=== PATIENT | male | born 1960 | race Caucasian/White ===

== ENCOUNTER → 2017-11-07 | Outpatient (CLI) | payer OTHER ==
--- NOTE | 2017-11-07 16:21 | KCIC ---
EXAM: Lumbar spine MRI without contrast. HISTORY: Radiculopathy. TECHNIQUE: Multiplanar, multisequence magnetic resonance imaging of the lumbar spine was performed without contrast. COMPARISON: None. FINDINGS: There is minimal lumbar levoscoliosis. There is no significant listhesis. The vertebral bodies are normal in height. There is degenerative endplate remodeling with anterior predominant osteophytosis throughout the lumbar spine. There is slight disc desiccation predominantly at L2-L3 and L3-L4. There are multiple endplate Schmorl's nodes. There is no suspicious osseous lesion. There is a large incidental osseous hemangioma or atypical hemangioma which demonstrates increased signal on inversion recovery images within the right posterior aspect of T12. No suspicious osseous lesion is seen. There is slight dorsal epidural lipomatosis at L4-L5. The conus terminates at T12-L1. At L1-L2, there is a minimal disc bulge and anterior predominant endplate remodeling. There is mild facet arthropathy. There is mild bilateral foraminal stenosis. At L2-L3, there is a mild disc bulge and anterior predominant endplate remodeling. There is mild bilateral facet arthropathy. There is mild central canal stenosis. At L3-L4, there is a right paracentral to extraforaminal disc protrusion and osteophyte complex and suspected tiny left foraminal disc protrusion. These are superimposed on a disc bulge and endplate remodeling. There is mild bilateral facet arthropathy. There is mild to moderate right and mild left foraminal stenosis with abutment of the exiting right vertebral left L3 nerve roots. There is mild central canal stenosis. At L4-L5, there is a left foraminal to extra foraminal disc protrusion superimposed on a disc bulge and endplate remodeling. There is moderate bilateral facet arthropathy. There is mild bilateral foraminal stenosis with abutment of the exiting left L4 nerve root. There is mild central canal stenosis. At L5-S1, there is mild bilateral facet arthropathy. There is no stenosis. IMPRESSION: Multilevel degenerative change throughout the lumbar spine, described above. This results in mild bilateral foraminal stenosis at L1-L2, mild central canal stenosis at L2-L3, mild to moderate right and mild left foraminal stenosis with abutment of the exiting right L3 nerve root and mild central canal stenosis at L3-L4, and mild bilateral foraminal stenosis with abutment of the exiting left L4 nerve root and mild central canal stenosis at L4-L5. Electronically signed by: Josie Rooney MD (11/07/2017 4:18 PM) [place] [id number]
== END | disposition home or self-care (01) ==
LOC: KCIC MRI 15:18
PROVIDERS: ATTEND Family Medicine
DX: M48.061 Spinal stenosis, lumbar region without neurogenic claudication (principal); M47.896 Other spondylosis, lumbar region; M12.88 Other specific arthropathies, not elsewhere classified, other specified site; M51.26 Other intervertebral disc displacement, lumbar region; M25.78 Osteophyte, vertebrae
CPT/HCPCS: 72148